=== PATIENT | female | born 1960 | race Caucasian/White ===

== ENCOUNTER 2021-02-01 16:46 | Inpatient (IN) | payer MEDICARE, OTHER ==
[~2021-02-01] VITALS: Ht 160 cm; Wt 58.1 kg
[2021-02-01] MEDS ORDERED: AMLO-212 PO (17:13)
[2021-02-01] MEDS ORDERED: ONDA4TAB11 PO (17:13)
[2021-02-01] MEDS ORDERED: DULO20CA PO (17:13)
[2021-02-01] MEDS ORDERED: DOCU-141 PO (17:13)
[2021-02-01] MEDS ORDERED: TAPE75TA2 PO (17:13)
[2021-02-01] MEDS ORDERED: CLON0.1T PO (17:13)
[2021-02-01] MEDS ORDERED: APIX5TAB PO (17:13)
[2021-02-01] MEDS ORDERED: NITR100C6 PO (17:28)
[2021-02-01] MEDS ORDERED: MAGNESIUM HYDROXIDE 30 ML UDC PO PRN (17:30)
[2021-02-01] MEDS ORDERED: BLOOD SUGAR DIAGNOSTIC 1 EACH STRIP IN ONE (17:30)
[2021-02-01] MEDS ORDERED: MAG HYDROX/AL HYDROX/SIMETH 30 ML UDC PO PRN (17:30)
--- NOTE | 2021-02-01 17:58 | NUR ---
GPS ADMITTING NOTE: PATIENT 61 E/O FEM[facility] . PER HOLD PATIENT PATIENT HAS D/O SCHIZOAFFECTIVE DISORDER , SHE HAS H/O MULTIPLE ADMISSION FOR O.D. SHE HAS ADMITTED FALLOWING O.D.. UPON FACE TO FACE ORIENTATION A/OX3 , PARANOID , ANXIOUS, DISORGANIZED. AMBULATORY VSS, MRSA DONE, LEFT MESSAGE TO BROTHER , DR HERNANDEZ COVERING DR BRYANT NOTIFIED OF ADMISSION WITH STANDING ORDER FOR DR BRYANT WILL INDORSE TO INCOMING SHIFT RN TO FOR CONTINUATION OF CARE AND COMPLETION OF ADMISSION.
[2021-02-01] MEDS: LORAZEPAM 0.5 MG TABLET PO PRN (18:35)
[2021-02-01] MEDS: APIXABAN 5 MG TABLET PO SCH (18:40)
--- NOTE | 2021-02-01 18:41 | NUR ---
RN NOTE: ANXIETY PT EXHIBITING INCREASED ANXIETY AND AGITATION. REQUESTING ATIVAN. ATIVAN 0.5 MG PO PRN ADMINISTERED.
[2021-02-01] MEDS: TEMAZEPAM 7.5 MG CAPSULE PO PRN (21:02)
[2021-02-01 21:03] VITALS: BP 136/103
[2021-02-02] MEDS: ONDANSETRON 4 MG TAB.RAPDIS PO PRN ×2 (03:40→16:49)
[2021-02-02 08:00] VITALS: BP 128/81
[2021-02-02] MEDS: AMLODIPINE BESYLATE 5 MG TABLET PO SCH ×2 (09:09→16:21)
[2021-02-02] MEDS: DOCUSATE SODIUM 100 MG CAPSULE PO SCH (09:10)
[2021-02-02] MEDS: APIXABAN 5 MG TABLET PO SCH ×2 (09:11→16:25)
[2021-02-02] MEDS: LORAZEPAM 0.5 MG TABLET PO PRN ×3 (09:31→21:42)
[2021-02-02] MEDS: ACETAMINOPHEN 325 MG TABLET PO PRN ×2 (09:45→21:46)
[2021-02-02] MEDS: NITROFURANTOIN/NITROFURAN MAC 100 MG CAPSULE PO SCH ×2 (10:55→21:43)
[2021-02-02] MEDS: LIDOCAINE 5% (PATCH) 1 EA PATCH TP SCH (10:55)
--- NOTE | 2021-02-02 14:38 | NUR ---
SS NOTE: SW met with pt. bedside and attempted to complete biopsychosocial assessment with pt. The pt. is a 61 year old female on a 5150 hold for DTS after overdosing on sleeping pills, per hold. The pt. is alert & oriented x 2. Pt. appears well-groomed and made piercing eye contact. Pt. is paranoid and delusional stating "you know what they're trying to do right?" Pt. refused to elaborate. Pt. is irritable and became agitated during interview stating "You seem suspicious. I want to talk to the Ombudsman before I answer any of your questions". Pt. refused to answer additional questions. SW will follow up at a later time.
[2021-02-02 16:00] VITALS: BP 110/70
[2021-02-02 18:11] LABS: BILIRUBIN,TOTAL 0.3 mg/dL (0.2-1.0); CALCIUM, SERUM 9.2 mg/dL (8.5-10.1); CREATININE 0.7 mg/dL (0.6-1.3); POTASSIUM 4.2 mmol/L (3.5-5.1)
[2021-02-02 18:12] LABS: CHOLESTEROL 200 mg/dL (<200); HDL CHOLESTEROL 66 mg/dL (40-60); LDL 117 mg/dL (0-99); TRIGLYCERIDES 76 mg/dL (30-150)
[2021-02-02] MEDS: OXCARBAZEPINE 150 MG TABLET PO SCH (18:24)
[2021-02-02] MEDS: QUETIAPINE FUMARATE 25 MG TABLET PO SCH (18:24)
[2021-02-02 20:59] VITALS: BP 136/84
[2021-02-02] MEDS: TEMAZEPAM 7.5 MG CAPSULE PO PRN (21:43)
--- NOTE | 2021-02-03 06:56 | NUR ---
professor of apologetics notes pt remains sleeping on her room, breathing even and unlabored not in any distress noted. slept well after sleep medication given last night. all due meds given and all needs met. kept her warm and comfortable at all times. Still needs to encourage her to interact to her peers and attend group therapy. will continue Q 15 minutes for safety and behavior. will endorse.
[2021-02-03 08:00] VITALS: BP 97/60
[2021-02-03] MEDS: LORAZEPAM 0.5 MG TABLET PO PRN ×3 (08:35→21:23)
[2021-02-03] MEDS: AMLODIPINE BESYLATE 5 MG TABLET PO SCH ×2 (09:00→16:20)
[2021-02-03] MEDS: OXCARBAZEPINE 150 MG TABLET PO SCH ×2 (09:08→16:19)
[2021-02-03] MEDS: DOCUSATE SODIUM 100 MG CAPSULE PO SCH (09:08)
[2021-02-03] MEDS: QUETIAPINE FUMARATE 25 MG TABLET PO SCH ×3 (09:08→16:18)
[2021-02-03] MEDS: APIXABAN 5 MG TABLET PO SCH ×2 (09:10→16:22)
[2021-02-03] MEDS: ACETAMINOPHEN 325 MG TABLET PO PRN ×2 (09:25→17:44)
[2021-02-03] MEDS: LIDOCAINE 5% (PATCH) 1 EA PATCH TP SCH (09:32)
[2021-02-03] MEDS: ONDANSETRON 4 MG TAB.RAPDIS PO PRN (10:36)
--- NOTE | 2021-02-03 12:06 | NUR ---
Caregiver Contact: SW spoke with the pts caregiver, Christina ([phone]), after the pt handed the phone to the SW. Pts caregiver stated that she assists her three days a week with the house keeping, grocery shopping, etc. She also stated that she attempts to assist the pt with her medications but the pt knows which ones to take and when. Christina stated that she will be available to flower buncher or picker the pt when she is being discharged from the hospital. SW stated that she will contact her when that times arrives.
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
[2021-02-03 16:00] VITALS: BP 112/67
[2021-02-03] MEDS ORDERED: TEMAZEPAM 7.5 MG CAPSULE PO PRN (17:30)
[2021-02-03 19:49] VITALS: BP 116/70
[2021-02-03 19:53] VITALS: BP 116/70
--- NOTE | 2021-02-03 20:34 | NUR ---
RN NOTE PATIENT REFUSED BLOOD LAB DRAW X 3 DESPITE OF EXPLANATIONS & PT. STATED," I AM NOT GOING TO ALLOW YOU TO DRAW BLOOD."
--- NOTE | 2021-02-03 21:24 | NUR ---
RN NOTE: ANXIETY PATIENT NOTED TO BE VERY ANXIOUS, RESTLESS, HYPERVERBAL, IRRITABLE, EASILY AGITATED, PATIENT REQUESTED TO TAKE ATIVAN AT THIS TIME. PRN ATIVAN 0.5 MG PO GIVEN.
--- NOTE | 2021-02-03 22:05 | NUR ---
RN NOTE: INSOMNIA PATIENT VERBALIZED THAT SHE IS UNABLE TO SLEEP & INSISTED TO TAKE SLEEPING MEDICINE RIGHT NOW, PRN RESTORIL 15 MG PO GIVEN ORDERED. PT. BECAME RESTLESS & ANXIOUS WHEN EXPLAINED. NOTED TO BE HYPERVERBAL, LABILE, RESTLESS, KEEPS FOLLOWING THE NURSE & PT. IS BACK & FORTH EVERY 5 MINUTES REPEATING SAME QUESTIONS CONSISTENTLY. BLAMING THE STAFF & DOCTOR FOR GIVING HER WRONG INFORMATION ABOUT HER HOLD DURING THE DAY TIME. NEEDS FREQUENT REDIRECTIONS & REDIRECTED PATIENT BACK TO HER ROOM. WILL CONTINUE TO MONITOR FOR EFFECTIVENESS OF RESTORIL.
[2021-02-04 08:00] VITALS: BP 123/82
[2021-02-04] MEDS: DOCUSATE SODIUM 100 MG CAPSULE PO SCH (08:01)
[2021-02-04] MEDS: OXCARBAZEPINE 150 MG TABLET PO SCH ×2 (08:02→16:58)
[2021-02-04] MEDS: ONDANSETRON 4 MG TAB.RAPDIS PO PRN (08:02)
[2021-02-04] MEDS: AMLODIPINE BESYLATE 5 MG TABLET PO SCH ×2 (08:02→16:58)
[2021-02-04] MEDS: LORAZEPAM 0.5 MG TABLET PO PRN ×3 (08:02→20:06)
[2021-02-04] MEDS: QUETIAPINE FUMARATE 25 MG TABLET PO SCH ×4 (08:03→17:12)
[2021-02-04] MEDS: APIXABAN 5 MG TABLET PO SCH ×2 (08:04→17:00)
--- NOTE | 2021-02-04 10:21 | NUR ---
Individual Intervention: SW met with the pt in the hallway and the pt stated that she wanted to be discharged from the hospital as soon as possible. Pt stated that she does not understand why she was placed on a 14 day hold and SW attempted to explain the reasoning but the pt refused to listen. Pt stated that she wanted the SW to discharge her to her caregiver and SW expressed that she can only facilitate a discharge once the MD approves it. Pt appeared to be dissatisfied.
[2021-02-04] MEDS: LIDOCAINE 5% (PATCH) 1 EA PATCH TP SCH (11:09)
[2021-02-04] MEDS: ACETAMINOPHEN 325 MG TABLET PO PRN ×2 (11:41→21:31)
[2021-02-04 16:00] VITALS: BP 102/70
--- NOTE | 2021-02-04 19:29 | NUR ---
RN NOTE PATIENT IS VERY MANIPULATED WITH MEDICATIONS. PER PATIENT SHE IS REFUSING TO TAKE SEROQUEL, HOWEVER, AFTER TELLING PATIENT IT IS OK SHE CAN REFUSE, PATIENT WANTS TO TAKE MEDICATION. PATIENT IS SEEKING ATTENTION AT EVERY CHANCE SHE GETS.
[2021-02-04 19:55] VITALS: BP 108/71
--- NOTE | 2021-02-04 20:08 | NUR ---
RN NOTE: ANXIETY PATIENT IS NOTED TO BE ANXIOUS & PT. ALSO VERBALIZED THAT SHE IS ANXIOUS, NOTED TO BE HYPERVERBAL, LABILE, PACING IN THE HALLWAY, FOLLOWING STAFF CONSISTENTLY, GETTING AGITATED & RESTLESS. PRN ATIVAN 0.5 MG PO GIVEN. WILL CONTINUE TO MONITOR.
[2021-02-04 20:23] VITALS: BP 108/71
--- NOTE | 2021-02-04 21:32 | NUR ---
RN NOTE: PAIN PATIENT C/O BILATERAL HIP PAIN 01/19 & REQUESTED TO GET TYLENOL. PRN TYLENOL 650 MG PO ADMINISTERED. WILL CONTINUE TO MONITOR.
[2021-02-04] MEDS: TEMAZEPAM 15 MG CAPSULE PO PRN (21:44)
--- NOTE | 2021-02-04 21:47 | NUR ---
RN NOTE: INSOMNIA PATIENT STATED," I CAN'T SLEEP, I NEED MY 30 MG RESTORIL RIGHT NOW." PER PATIENT REQUEST RESTORIL 30 MG PO ADMINISTERED. WILL CONTINUE TO MONITOR.
[2021-02-05] MEDS: LORAZEPAM 0.5 MG TABLET PO PRN ×3 (05:54→19:57)
--- NOTE | 2021-02-05 05:55 | NUR ---
RN NOTE: ANXIETY PATIENT VERBALIZED OF EXPERIENCING ANXIETY & RESTLESS. PT. REQUESTED TO GET ATIVAN, PRN ATIVAN 0.5 MG PO GIVEN, WILL CONTINUE TO MONITOR.
[2021-02-05] MEDS: ACETAMINOPHEN 325 MG TABLET PO PRN (05:56)
--- NOTE | 2021-02-05 05:57 | NUR ---
RN NOTE: PAIN PATIENT C/O BILATERAL HIP PAIN 01/19 & REQUESTED TO GET TYLENOL. PRN TYLENOL 650 MG PO ADMINISTERED. WILL CONTINUE TO MONITOR.
--- NOTE | 2021-02-05 06:20 | NUR ---
REFUSED AM LABS PATIENT REFUSED AM LABS TODAY DESPITE OF EXPLANATIONS, VERY SUSPICIOUS & UNCOOPERATIVE.
[2021-02-05 08:00] VITALS: BP 104/66
[2021-02-05] MEDS: APIXABAN 5 MG TABLET PO SCH ×2 (08:24→17:37)
[2021-02-05] MEDS: AMLODIPINE BESYLATE 5 MG TABLET PO SCH ×2 (08:25→17:00)
[2021-02-05] MEDS: DOCUSATE SODIUM 100 MG CAPSULE PO SCH (08:25)
[2021-02-05] MEDS: QUETIAPINE FUMARATE 25 MG TABLET PO SCH ×3 (08:25→17:36)
[2021-02-05] MEDS: OXCARBAZEPINE 150 MG TABLET PO SCH ×2 (08:25→17:36)
[2021-02-05] MEDS: ONDANSETRON 4 MG TAB.RAPDIS PO PRN (08:39)
--- NOTE | 2021-02-05 08:39 | NUR ---
GIVEN ZOFRAN FOR C/O NAUSEA.
[2021-02-05] MEDS: LIDOCAINE 5% (PATCH) 1 EA PATCH TP SCH (12:32)
--- NOTE | 2021-02-05 12:33 | NUR ---
given ativan for nervousness.
--- NOTE | 2021-02-05 12:47 | NUR ---
iniitially refused lab draw,then agreeable,so lab notified to come back to floor.
--- NOTE | 2021-02-05 12:51 | NUR ---
vs checked.125/67,t 98.6,heart rate 68.pox 95%.rr 18.
[2021-02-05 15:35] LABS: THYROID STIMULATING HORMONE 0.538 uIU/mL (0.358-3.74); URIC ACID 2.9 mg/dL (2.6-7.2)
[2021-02-05 15:42] LABS: CALCIUM, SERUM 8.7 mg/dL (8.5-10.1); CREATININE 0.8 mg/dL (0.6-1.3); MAGNESIUM 2.2 mg/dL (1.8-2.4); PHOSPHORUS 3.7 mg/dL (2.5-4.9); POTASSIUM 3.9 mmol/L (3.5-5.1)
[2021-02-05 16:00] VITALS: BP 115/75
[2021-02-05] MEDS: ACETAMINOPHEN 325 MG TABLET PO SCH ×2 (17:40→21:51)
[2021-02-05] MEDS: GABAPENTIN 300 MG CAPSULE PO SCH ×2 (17:40→19:05)
[2021-02-05] MEDS: oxyCODONE IR immediate release 5 MG PO PRN (18:00)
--- NOTE | 2021-02-05 18:09 | NUR ---
DR. YULIYA KUMAR. IN TO SEE PT.WROTE NEW ORDERS.
--- NOTE | 2021-02-05 19:30 | NUR ---
GPS RN OPENING NOTE. RECIEVED PATIENT AWAKE ALERT SITTING ON BED IN ROOM. DENIES SI/HI AT THIS TIME. PT IS REPRTING THAT SHE FEELS ANXIOUS AT THIS. PT IN NO APPARENT PHSYICAL DISTRESS. BREATHING EVEN AND UNLABORED WITH EQUAL RISE ADN FALL OF CHEST PT IS ALERT AND ORIENTED X2-3 ON ROOM AIR. PT A BIT HYPER BUT AMBULATES WITH WALKER WITH STEADY GAIT. PT COOPERATIVE. PT VERBALIZED UNDERSTANDING OF USE OF THE CALL LENZ TO ASK FOR ASSISANCE. BED DOWN SRX2 LOCKED FOR SAFETY. WILL CONT TO MONITOR Q15 MINIUTES WITH HELP OF STAFF TO MAINTAIN SAFETY.
[2021-02-05 20:36] VITALS: BP 122/85
[2021-02-05] MEDS: TEMAZEPAM 15 MG CAPSULE PO PRN (23:05)
[2021-02-06] MEDS: oxyCODONE IR immediate release 5 MG PO PRN ×3 (04:22→21:54)
[2021-02-06] MEDS: ACETAMINOPHEN 325 MG TABLET PO SCH ×4 (04:26→23:07)
--- NOTE | 2021-02-06 04:27 | NUR ---
oxycodone administered for patient pain of 8/10 per md orders and pt request. pt refusing tyelnol at this time. states, "I don't want it, the oxycodone should be fine for now."
[2021-02-06 08:00] VITALS: BP 101/66
[2021-02-06] MEDS: LORAZEPAM 0.5 MG TABLET PO PRN ×3 (08:34→20:19)
--- NOTE | 2021-02-06 08:35 | NUR ---
RN NOTE: ANXIETY PATIENT EXPERIENCING ANXIETY & RESTLESS. PT. REQUESTED TO GET ATIVAN, PRN ATIVAN 0.5 MG PO GIVEN, WILL CONTINUE TO MONITOR.
[2021-02-06] MEDS: OXCARBAZEPINE 150 MG TABLET PO SCH ×2 (09:04→17:03)
[2021-02-06] MEDS: GABAPENTIN 300 MG CAPSULE PO SCH ×3 (09:04→17:02)
[2021-02-06] MEDS: DOCUSATE SODIUM 100 MG CAPSULE PO SCH (09:04)
[2021-02-06] MEDS: QUETIAPINE FUMARATE 25 MG TABLET PO SCH ×3 (09:04→17:02)
[2021-02-06] MEDS: AMLODIPINE BESYLATE 5 MG TABLET PO SCH ×2 (09:05→17:00)
[2021-02-06] MEDS: APIXABAN 5 MG TABLET PO SCH ×2 (09:06→17:04)
[2021-02-06] MEDS: ONDANSETRON 4 MG TAB.RAPDIS PO PRN (09:17)
[2021-02-06] MEDS: LIDOCAINE 5% (PATCH) 1 EA PATCH TP SCH (10:26)
--- NOTE | 2021-02-06 12:28 | NUR ---
GPS RN NOTE: PATIENT C/O BACK R HIP PAIN 07/22 OXI PRN GIVEN PER ORDER WILL CONTINUE MONITORING
--- NOTE | 2021-02-06 14:36 | NUR ---
RN NOTE: ANXIETY PATIENT EXPERIENCING ANXIETY & RESTLESS. PT. REQUESTED TO GET ATIVAN, PRN ATIVAN 0.5 MG PO GIVEN, WILL CONTINUE TO MONITOR.
[2021-02-06 16:00] VITALS: BP 111/63
[2021-02-06 20:00] VITALS: BP 99/59
--- NOTE | 2021-02-06 20:21 | NUR ---
GPS RN NOTES: PATIENT IS RESTLESS, ANXIOUS, PACING. REQUESTED ATIVAN FOR ANXIETY. ATIVAN 0.5MG/1TAB GIVEN PO PRN ORDERED AT 2019. WILL CONTINUE TO MONITOR.
--- NOTE | 2021-02-06 21:54 | NUR ---
GPS RN NOTES: PATIENT C/O PAIN. RATES PAIN LEVEL 8/10. OXYCODONE 5MG 2TABS/10MG GIVEN PO PRN ORDERED AT 2154. WILL CONTINUE TO MONITOR.
[2021-02-06] MEDS: TEMAZEPAM 15 MG CAPSULE PO PRN (23:11)
--- NOTE | 2021-02-06 23:16 | NUR ---
GPS RN NOTES: PATIENT REQUESTED FOR SLEEP MEDICATION. RESTORIL 15MG 2TAB/30MG GIVEN PO PRN ORDERED AT 2311. WILL CONTINUE TO MONITOR.
[2021-02-07] MEDS: ACETAMINOPHEN 325 MG TABLET PO SCH ×2 (04:30→10:28)
[2021-02-07] MEDS: oxyCODONE IR immediate release 5 MG PO PRN ×2 (05:54→13:49)
--- NOTE | 2021-02-07 05:55 | NUR ---
GPS RN NOTES: PATIENT C/O PAIN. RATES PAIN LEVEL 8/10. OXYCODONE 5MG 2TABS/10MG GIVEN PO PRN ORDERED AT 0554. WILL CONTINUE TO MONITOR.
--- NOTE | 2021-02-07 06:52 | NUR ---
GPS RN CLOSING NOTES: PATIENT LAYING ON BED AWAKE, A/O X2, SLEPT 5HOURS THIS SHIFT. NO S/S OF DISTRESS. RESPIRATION EVEN AND UNLABORED WITH EQUAL RISE AND FALL OF THE CHEST ON ROOM AIR. ALL PATIENT CARE NEEDS HAVE BEEN MET ANTICIPATED. WILL CONTINUE TO MONITOR FOR SAFETY, MOOD AND BEHAVIOR AND ENDORSE TO AM SHIFT.
[2021-02-07 08:00] VITALS: BP 101/61
[2021-02-07 08:20] VITALS: BP 101/61
[2021-02-07] MEDS: AMLODIPINE BESYLATE 5 MG TABLET PO SCH (08:20)
[2021-02-07] MEDS: APIXABAN 5 MG TABLET PO SCH (08:35)
[2021-02-07] MEDS: LORAZEPAM 0.5 MG TABLET PO PRN ×2 (08:37→13:48)
[2021-02-07] MEDS: GABAPENTIN 300 MG CAPSULE PO SCH ×2 (08:38→12:38)
[2021-02-07] MEDS: OXCARBAZEPINE 150 MG TABLET PO SCH (08:38)
[2021-02-07] MEDS: DOCUSATE SODIUM 100 MG CAPSULE PO SCH (08:38)
[2021-02-07] MEDS: QUETIAPINE FUMARATE 25 MG TABLET PO SCH ×2 (08:39→12:37)
--- NOTE | 2021-02-07 09:00 | NUR ---
RN NOTES PATIENT REQUESTED FOR ATIVAN PRN, VERBALIZED ANXIETY/BEING ANXIOUS; APPROACHED IN CALM MANNER AND PROVIDED MEDICATION TO PATIENT INDICATED.
--- NOTE | 2021-02-07 09:45 | NUR ---
RN NOTES PATIENT REQUESTED FOR OUTSIDE CONTACT NUMBERS FOR DR. CURRY AND DR. JOYCE; NUMBERS OBTAINED AND PROVIDED TO PATIENT. ALSO REQUESTED EXTENSION OF DIETARY.
[2021-02-07] MEDS: LIDOCAINE 5% (PATCH) 1 EA PATCH TP SCH (10:28)
--- NOTE | 2021-02-07 10:47 | NUR ---
Caregiver Contact: BAN called the pts caregiver, Christina ([phone]), and informed her that the pt is going to be discharged today and she stated that she can come picker feeder the pt around 2pm.
--- NOTE | 2021-02-07 12:22 | NUR ---
Discharge Note: Pt will be discharged back to her home located at [address] [place] [address]; ([phone]). Pt will be picked up by her caregiver, Christina ([phone]), at 2pm. Upon discharge, pt presents with a dysphoric mood and presents with an agitated affect. Pt appears to be alert and oriented x4 (time, place, self and situation). Pt denies suicidal and homicidal ideation as well as auditory and visual hallucinations. Pt will follow up with her psychiatrist, Dr. Boogie, located at [address] [place] [address]; . [address]. Adams office is closed on Sunday so an appointment could not be made but the pt stated that she wanted to make her own appointment so that the SW does not know where she will be and when. Pt will follow up with her surveyor's assistant, Dr. Lundberg, located at [address] [address], [place] [address]; . The multidisciplinary exit care form was done, printed, signed, and given to the patient.
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
--- NOTE | 2021-02-07 13:34 | NUR ---
RN NOTES PATIENT REFUSED TO SIGN FIREARMS DISCHARGE FORM.
--- NOTE | 2021-02-07 13:50 | NUR ---
RN NOTES PATIENT REQUESTED FOR ATIVAN AND OXYCODONE PRN MEDICATIONS; PATIENT VERBALIZED ANXIETY AND COMPLAINT OF PAIN ON L LEG/LLE RATED 8/10. PRN MEDICATIONS ADMINISTERED INDICATED.
--- NOTE | 2021-02-07 16:06 | NUR ---
GPS RETAIL WIRELESS ASSOCIATE NOTES 61-YEAR-OLD FEMALE DISCHARGE TO HOME AT [address] [place] [address] ([phone]), IN STABLE CONDITION. COMPLIANT W/ MEDICATIONS, COOPERATIVE W/ TREATMENT PLANS. PATIENT DENIES SI/HI/AVH AND INSTRUCTED TO GO TO THE CLOSEST ER IF DEVELOPING SI/HI. BEHAVIOR IMPROVED, PSYCHIATRIC TX PLANS MET, MEDICAL TX PLANS DEFERRED FOR CONTINUAL MONITORING. EDUCATED PATIENT ABOUT AFTER CARE PLAN (EXITCARE) AND COPY PROVIDED. RETURNED PERSONAL BELONGINGS TO PATIENT. MEDICATIONS RECONCILED W/ DR. OROURKE, PSYCHIATRIST, AND DR. HUANG, CULLET TRUCKER. PATIENT SIGNED DISCHARGE PAPERWORK BUT REFUSED TO SIGN DISCHARGE MEDICATION LIST, STATING THAT "I DON'T CARE, I DON'T NEED TO SIGN THAT PAPER". PATIENT REFUSED SKIN CHECK WELL. PATIENT WAS ACCOMPANIED BY UCHE, RN, VIA WHEELCHAIR TO THE LOBBY AND PICKED UP BY CAREGIVER, GIULIANA ([phone]), VIA PRIVATE CAR.
== END 2021-02-07 16:00 | disposition home or self-care (01) | DRG 885 ==
LOC: GPS 16:46
PROVIDERS: ADMIT Psychiatry & Neurology Psychiatry; ATTEND Internal Medicine
DX: F29 Unspecified psychosis not due to a substance or known physiological condition (principal); F11.20 Opioid dependence, uncomplicated; I82.409 Acute embolism and thrombosis of unspecified deep veins of unspecified lower extremity; E22.2 Syndrome of inappropriate secretion of antidiuretic hormone; F41.9 Anxiety disorder, unspecified; I10 Essential (primary) hypertension; M19.90 Unspecified osteoarthritis, unspecified site; G62.9 Polyneuropathy, unspecified; Z79.899 Other long term (current) drug therapy; Z88.8 Allergy status to other drugs, medicaments and biological substances; Z73.6 Limitation of activities due to disability; R27.8 Other lack of coordination; G89.4 Chronic pain syndrome; M48.00 Spinal stenosis, site unspecified; Z96.643 Presence of artificial hip joint, bilateral; Z91.81 History of falling; F32.9 Major depressive disorder, single episode, unspecified; F25.9 Schizoaffective disorder, unspecified; R53.1 Weakness; T42.1X5A Adverse effect of iminostilbenes, initial encounter; Y92.9 Unspecified place or not applicable
CPT/HCPCS: 36415; 80048-TC; 80053-TC; 80061-TC; 82962-TC; 83735-TC; 84100-TC; 84300-TC; 84443-TC; 84550-TC; 87081-TC; Q0162

== ENCOUNTER 2023-06-04 13:58 | Emergency (ER) | payer MEDICARE, OTHER ==
[~2023-06-04] VITALS: Ht 165.1 cm; Wt 52.2 kg
--- NOTE | 2023-06-04 09:50 | NUR ---
SW consult: Patient is a 63 year old female. She's confused. got schizophrenia and Bipolar since 19 years old and not taking her medication. The patient has not been taking her medications. Patient has not been eating for weeks now. She is very skinny. Confirmed both hallucinations and delusions. Information given by her brother that was in the room with the patient. DC Plan: SW discussed the treatment team and the crisis team will evaluate the patient.
[~2023-06-04 13:58] MED LIST: AMLO-212 PO; APIX5TAB PO; CLON0.1T PO; DOCU-141 PO; NITR100C6 PO; ONDA4TAB11 PO; TAPE75TA2 PO
--- NOTE | 2023-06-04 14:50 | NUR ---
pt in bed brought in by family. pend psych eval
--- NOTE | 2023-06-04 15:10 | NUR ---
social studies department chair is at the bedside. pt C/O of hallucinations
[2023-06-04 15:36] LABS: BASOPHILS % (AUTO) 0.9 % (0.0-2.0); EOSINOPHILS % (AUTO) 0.7 % (0.0-6.0); HEMATOCRIT 42 % (33-45); HEMOGLOBIN 13.9 g/dL (11.5-14.8); LYMPHOCYTES % (AUTO) 38.2 % (20.0-44.0); MEAN CORPUSCULAR HGB CONC 33 g/dl (31.0-36.0); MEAN CORPUSCULAR VOLUME 95 fL (82-100); MONOCYTES # (AUTO) 0.4 K/uL (0.1-1.30); MONOCYTES % (AUTO) 7.2 % (2.0-12.0); NEUTROPHILS # (AUTO) 2.7 K/uL (1.8-8.9); PLATELET COUNT (AUTO) 266 K/uL (150-450); RED BLOOD CELL COUNT(AUTO) 4.43 MIL/uL (4.0-5.2); WHITE BLOOD COUNT (AUTO) 5.1 K/uL (4.3-11.0)
[2023-06-04 15:44] LABS: CALCIUM, SERUM 8.9 mg/dL (8.5-10.1); CARBON DIOXIDE 24 mmol/L (21-32); CHLORIDE 106 mmol/L (98-107); CREATININE 0.8 mg/dL (0.6-1.3); GLUCOSE 127 mg/dL (74-106); POTASSIUM 3.2 mmol/L (3.5-5.1); SODIUM SERUM 144 mmol/L (136-145); UREA NITROGEN, BLOOD 13 mg/dL (7-18)
[2023-06-04 15:50] LABS: ALANINE AMINOTRANSFERASE 14 U/L (12-78); ALBUMIN 3.6 g/dL (3.4-5.0); ALCOHOL, BLOOD < 3 mg/dL (0-10); ALKALINE PHOSPHATASE 68 U/L (46-116); ASPARTATE AMINOTRANSFERASE 9 U/L (15-37); BILIRUBIN,DIRECT 0.1 mg/dL (0.0-0.2); BILIRUBIN,TOTAL 0.4 mg/dL (0.2-1.0); TOTAL PROTEIN, SERUM 7.6 g/dL (6.4-8.2)
[2023-06-04] MEDS ORDERED: LORA-259 PO (15:51)
[2023-06-04] MEDS ORDERED: DIAZ10TA PO (15:51)
--- NOTE | 2023-06-04 16:12 | NUR ---
URINE COLLECTED AND SENT
--- NOTE | 2023-06-04 16:20 | NUR ---
AISHWARYA " SISTER IN LAW " [phone] GIANLUCA " BROTHER " [phone]
[2023-06-04 16:37] LABS: BILIRUBIN,URINE NEGATIVE (NEGATIVE); COLOR,URINE YELLOW (YELLOW); LEUKOCYTE ESTERASE ,URINE 1+ (NEGATIVE); NITRITE, URINE NEGATIVE (NEGATIVE); PROTEIN,URINE TRACE mg/dl (NEGATIVE); UGLUCOSE NEGATIVE (NEGATIVE); UROBILINOGEN,URINE 0.2 EU/dL (0.2)
--- NOTE | 2023-06-04 17:28 | NUR ---
pt in bed comfortable
[2023-06-04 17:44] LABS: BACTERIA,URINE 2+ /HPF (None Seen)
--- NOTE | 2023-06-04 18:05 | NUR ---
NOTIFIED BY FESTUS THAT JAYLEN, PSYCHIATRIC ATTENDANT, WILL EVALUATE THE PT
--- NOTE | 2023-06-04 20:20 | NUR ---
JAYLEN CRISIS TEAM IN ED TO EVALUATE PT
--- NOTE | 2023-06-04 21:03 | NUR ---
[facility]EL[facility]KI[facility] [phone]
--- NOTE | 2023-06-05 00:10 | NUR ---
UPDATED AISHWARYA " SISTER IN LAW " [phone]
--- NOTE | 2023-06-05 01:42 | NUR ---
PROVIDED PT WITH FOOD AND JUICE.
--- NOTE | 2023-06-05 04:54 | NUR ---
SPOKE TO ROSIE, WATCH CRYSTAL EDGE GRINDER, AT [facility]. HE IS LOOKING FOR THE PLACEMENT FOR THE PATIENT. NO BED AVAIABLE AT ANY HOSPITAL YET. WILL FOLLOW UP.
--- NOTE | 2023-06-05 05:50 | NUR ---
UPDATED AISHWARYA " SISTER IN LAW " [phone]
--- NOTE | 2023-06-05 11:34 | NUR ---
Faxed clinicals to [facility] [phone] , [facility] [phone] , [facility] [phone] , [place] [phone] , [facility] [phone].
[2023-06-05 12:36] VITALS: BP 132/84; TEMP 98.1; O2SAT 99
--- NOTE | 2023-06-05 13:27 | NUR ---
ACCEPTED AT [facility] FROM [facility] [phone]) [id number] PATIENT ACCEPTED UNDER DR. ARIAS PATIENT WILL BE [facility]ING [facility]. NURSE REPORT BE GIVEN TO [phone] COORDINATE TRANSPORTATION AFTER 3PM.
--- NOTE | 2023-06-05 13:30 | NUR ---
CALLED [facility] FOR TRANSPORT ETA 60 MINS.
--- NOTE | 2023-06-05 15:15 | NUR ---
REPORT GIVEN TO EMT FOR [facility]
== END 2023-06-05 15:45 ==
LOC: ER 14:04
DX: R62.7 Adult failure to thrive (principal); Z79.899 Other long term (current) drug therapy; Z88.1 Allergy status to other antibiotic agents
CPT/HCPCS: 99285; 85025; 80048; 87086; 80076; 81001; 36415; 87426; 80143; 80320; 80307; C9803; G0480

== ENCOUNTER 2025-07-27 01:05 | Inpatient (IN) | payer MEDICARE, OTHER ==
[~2025-07-27] VITALS: Ht 165.1 cm; Wt 52.2 kg
[~2025-07-27 01:05] MED LIST changes: -AMLO-212 PO; -APIX5TAB PO; -CLON0.1T PO; +DIAZ10TA PO; -DOCU-141 PO; +LORA-259 PO; -NITR100C6 PO; -ONDA4TAB11 PO; -TAPE75TA2 PO
[2025-07-27] MEDS ORDERED: HYDR-500 PO (01:47)
[2025-07-27] MEDS ORDERED: CALC-883 PO (01:47)
[2025-07-27] MEDS ORDERED: TEMA30CA PO (01:47)
[2025-07-27 03:04] LABS: PLATELET COUNT (AUTO) 205 K/uL (150-450); RED BLOOD CELL COUNT(AUTO) 4.49 MIL/uL (4.0-5.2); RED CELL DISTRIBUTION WIDTH 14.7 % (11.5-15.0); WHITE BLOOD COUNT (AUTO) 6.3 K/uL (4.3-11.0)
[2025-07-27 03:16] LABS: CALCIUM, SERUM 8.8 mg/dL (8.5-10.1); CREATININE 0.7 mg/dL (0.6-1.3); SODIUM SERUM 138 mmol/L (136-145); UREA NITROGEN, BLOOD 9 mg/dL (7-18)
[2025-07-27 03:22] LABS: APPEARANCE,URINE CLEAR (CLEAR); BLOOD, URINE TRACE-INTA Ery/uL (NEGATIVE); LEUKOCYTE ESTERASE ,URINE NEGATIVE (NEGATIVE); NITRITE, URINE NEGATIVE (NEGATIVE); UGLUCOSE NEGATIVE (NEGATIVE)
[2025-07-27 03:32] LABS: AMPHETAMINE, URINE NEGATIVE (NEGATIVE); BARBITURATE, URINE NEGATIVE (NEGATIVE); BENZODIAZEPINE, URINE NEGATIVE (NEGATIVE); CANNABINOID, URINE NEGATIVE (NEGATIVE); COCCAINE, URINE NEGATIVE (NEGATIVE); OPIATE, URINE NEGATIVE (NEGATIVE)
[2025-07-27 03:34] LABS: ASPARTATE AMINOTRANSFERASE 12 U/L (15-37); TOTAL PROTEIN, SERUM 6.8 g/dL (6.4-8.2)
[2025-07-27 03:41] LABS: ADD URINE CULTURE YES; SQUAMOUS EPITHELIAL CELL,UR Moderate /HPF (None Seen)
[2025-07-27 03:45] LABS: ALCOHOL, BLOOD < 3 mg/dL (0-10); SERUM AMMONIA 15 umol/L (11-32)
[2025-07-27 06:12] VITALS: BP 99/66; TEMP 98; O2SAT 100
[2025-07-27] MEDS ORDERED: MAG HYDROX/AL HYDROX/SIMETH 30 ML UDC PO PRN (06:30)
[2025-07-27] MEDS ORDERED: MAGNESIUM HYDROXIDE 30 ML UDC PO PRN (06:30)
[2025-07-27] MEDS ORDERED: LORAZEPAM 0.5 MG TABLET PO PRN (06:30)
[2025-07-27] MEDS ORDERED: ACETAMINOPHEN 325 MG TABLET PO PRN (06:30)
[2025-07-27] MEDS: BLOOD SUGAR DIAGNOSTIC 1 EACH STRIP IN ONE (06:51)
[2025-07-27] MEDS ORDERED: CEPH-570 PO (07:37)
[2025-07-27 08:00] VITALS: BP 100/63; TEMP 98.2; O2SAT 98
[2025-07-27 16:00] VITALS: BP 100/66; TEMP 98.8; O2SAT 100
[2025-07-27 16:27] LABS: APPEARANCE,URINE CLEAR (CLEAR); BLOOD, URINE NEGATIVE Ery/uL (NEGATIVE); LEUKOCYTE ESTERASE ,URINE NEGATIVE (NEGATIVE); NITRITE, URINE NEGATIVE (NEGATIVE); UGLUCOSE NEGATIVE (NEGATIVE)
[2025-07-27 20:00] VITALS: BP 98/68; TEMP 98.1; O2SAT 99
[2025-07-27] MEDS: DIVALPROEX SODIUM 125 MG TABLET.DR PO SCH (20:19)
[2025-07-27] MEDS: QUETIAPINE FUMARATE 25 MG TABLET PO SCH (20:19)
[2025-07-27] MEDS: TEMAZEPAM 7.5 MG CAPSULE PO PRN (20:30)
[2025-07-28 08:25] VITALS: BP 106/79; TEMP 97.6; O2SAT 97
[2025-07-28] MEDS: CALCIUM CARB 600MG /VIT D 1 EACH TABLET PO SCH (08:59)
[2025-07-28] MEDS: LORAZEPAM 0.5 MG TABLET PO PRN (10:34)
[2025-07-28 16:10] VITALS: BP 104/67; TEMP 98; O2SAT 99
[2025-07-28 21:08] VITALS: BP 106/81; TEMP 97.7; O2SAT 98
[2025-07-28] MEDS: ARIPIPRAZOLE 5 MG TABLET PO SCH (21:09)
[2025-07-28] MEDS: TEMAZEPAM 7.5 MG CAPSULE PO PRN (21:43)
[2025-07-29 08:00] VITALS: BP 100/73; TEMP 98.7; O2SAT 98
[2025-07-29 16:00] VITALS: BP 97/68; TEMP 98.1; O2SAT 98
[2025-07-29 19:50] VITALS: BP 95/79; TEMP 97.7; O2SAT 98
[2025-07-30 08:00] VITALS: BP 103/66; TEMP 97.8; O2SAT 98
[2025-07-30 16:12] VITALS: BP 129/81; TEMP 97.8; O2SAT 96
[2025-07-30 20:00] VITALS: BP 96/64; TEMP 97.8; O2SAT 94
[2025-07-31 08:00] VITALS: BP 118/87; TEMP 97.9; O2SAT 98
[2025-07-31 16:12] VITALS: BP 98/67; TEMP 97.9; O2SAT 97
[2025-08-01 07:00] VITALS: BP 103/70; TEMP 97.3; O2SAT 98
[2025-08-01] MEDS: DIVALPROEX SODIUM 125 MG TABLET.DR PO SCH (12:36)
[2025-08-01 16:00] VITALS: BP 109/75; TEMP 97.7; O2SAT 96
[2025-08-01 20:00] VITALS: BP 113/75; TEMP 98.1; O2SAT 100
[2025-08-02 08:00] VITALS: BP 98/73; TEMP 97.8; O2SAT 98
[2025-08-02 16:12] VITALS: BP 109/75; TEMP 98; O2SAT 100
[2025-08-02 20:58] VITALS: BP 122/82; TEMP 98.4; O2SAT 99
[2025-08-02] MEDS: TEMAZEPAM 7.5 MG CAPSULE PO PRN (21:11)
[2025-08-03 08:00] VITALS: BP 109/80; TEMP 97.7; O2SAT 100
[2025-08-03 16:00] VITALS: BP 125/86; TEMP 98.7; O2SAT 98
[2025-08-03] MEDS: LORAZEPAM 1 MG TABLET PO ONE (17:28)
[2025-08-03 20:12] VITALS: BP 107/73; TEMP 98.4; O2SAT 100
[2025-08-03] MEDS: TEMAZEPAM 7.5 MG CAPSULE PO PRN (21:47)
[2025-08-04 08:00] VITALS: BP 100/72; TEMP 97.8; O2SAT 99
== END 2025-08-04 12:50 | DRG 885 ==
LOC: ER 01:09 → GPS 05:57
PROVIDERS: ADMIT Psychiatry & Neurology Psychosomatic Medicine; ATTEND Internal Medicine
DX: F25.0 Schizoaffective disorder, bipolar type (principal); F03.92 Unspecified dementia, unspecified severity, with psychotic disturbance; F03.93 Unspecified dementia, unspecified severity, with mood disturbance; F29 Unspecified psychosis not due to a substance or known physiological condition; F32.A Depression, unspecified; F41.9 Anxiety disorder, unspecified; I48.0 Paroxysmal atrial fibrillation; K74.60 Unspecified cirrhosis of liver; F39 Unspecified mood [affective] disorder; M62.81 Muscle weakness (generalized); Z20.822 Contact with and (suspected) exposure to COVID-19
CPT/HCPCS: 36415; 70450-TC; 80053-TC; 81001; 82140-TC; 82962-TC; 85025-TC; 87081-TC; 87086-TC; 97112-TC; 97116-TC; 97530-TC; G0480